=== PATIENT | male | born 1970 ===

== ENCOUNTER 2024-05-13 19:19 | Inpatient (IN) | payer OTHER ==
[2024-05-13] MEDS: LIDOCAINE 1% INJ 10MG/ML (20 ML MDV) SQ ONE (19:58)
[2024-05-13] MEDS: fentaNYL (PF) 50 MCG/ML 2 ML AMP IVP ONE (19:58)
[2024-05-13] MEDS: MIDAZOLAM 2 MG/2 ML VIAL IVP ONE (19:58)
[2024-05-13] MEDS: IV FLUID CONTINUATION 1,000 ML IV ONE (20:00)
[2024-05-13] MEDS: PRASUGREL 10 MG TAB PO ONE (20:12)
[2024-05-13] MEDS: HEPARIN SODIUM 1,000 UN/ML (10ML VL) IV ONE (20:12)
[2024-05-13] MEDS: FUROSEMIDE 10 MG/ML 4 ML VIAL IV ONE (20:12)
--- NOTE | 2024-05-13 20:17 | P.CRDCN ---
History of Present Illness Consult date: 05/13/24 History of present illness: HISTORY OF PRESENTING ILLNESS: Patient is a 53-year-old male with past medical history of hypertension, dyslipidemia with no prior history of coronary artery disease stroke or diabetes. He presented to [facility] because of substernal chest pressure that started this morning. This was associated with a sense of impending doom, palpitations and diaphoresis. She does have a history of smoking 1 to 2 packs cigarettes per day and use of marijuana every day. Denies any heavy alcohol use drug use On admission to the ER he was noticed to have significant ST elevations in anterior leads for which STEMI was activated and patient was transferred to [facility]. Upon arrival to [facility] patient was immediately wheeled to the cardiac Lime Kiln Tender without any delays. Patient was emergently taken for the cardiac cath procedure after obtaining the verbal consent. Patient denies any history of stroke, TIA, cancers, bleeding problems. REVIEW OF SYSTEMS: 14 point review of system is negative except what is mentioned above in HPI. PHYSICAL EXAMINATION: Neck: Brisk carotid upstroke, no jugular venous distention. Lungs: Clear to auscultation. Heart: Regular rate and rhythm, S1-S2, , no murmur or rub. Abdomen: Soft nontender, positive bowel sounds. Extremities: No edema, intact distal pulses. Neuro: Alert, oritented, no focal deficits. Detailed neuro exam was not performed. ASSESSMENT: # Anterior STEMI # Essential hypertension # Tobacco smoker # Marijuana smoker PLAN: Emergent cardiac cath Further recommendations to follow Rafat Clemens MD, FACC, RPVI Thank you for allowing [facility] to participate in this patient's care. Feel free to reach out in case of any followup questions. Medications and Allergies Allergies Allergy/AdvReac Type Severity Reaction Status Date / Time No Known Allergies Allergy Unverified 05/13/24 20:04
--- NOTE | 2024-05-13 20:22 | P.CARDCATH ---
Date of Procedure: 05/13/24 Description of Procedure: DIAGNOSTIC CORONARY ANGIOGRAPHY and LEFT HEART CATH REPORT PROCEDURES PERFORMED: Left heart catheterization Selective coronary angiography Moderate conscious sedation 15 mins Right radial access INDICATION: STEMI BRIEF HPI: 53-year-old with history of smoking, marijuana use presented to the [facility] because of anterior STEMI. He was taken to the [facility] because of significant ST elevation and substernal chest pressure. CONSENT: I have explained the procedural steps of above-mentioned procedures in layman's terms to the patient. I discussed the risks (including but not limited to stroke, emergent vascular or cardiac surgery or ), benefits and alternative therapies for the above-mentioned procedure. I discussed the risks of sedation/analgesia and blood product administration (if indicated). The patient has indicated understanding and acceptance of these risks. Conscious Sedation: Patient's ECG, heart rate, blood pressure, pulse oximetry were monitored throughout the duration of procedure under my direct supervision. 1 mg Versed and 25 mcg Fentanyl were used for induction of moderate conscious sedation. Total duration of moderate concious sedation 15 minutes. PROCEDURAL DETAILS: Patient was prepped and draped in sterile fashion. 1% lidocaine was infiltrated over the right radial artery. Right radial access was obtained via modified seldinger technique.. Medications: 5mg of verapamil was administed in the radial sheet. 5000 units of heparin and 325 mg of aspirin was given in the EMS Wires and Catheter used: J wire was advanced under fluroscopy to get to aortic root. 5 mosotho JR 4 diagnostic catheter was utilized obtain left ventricular pressure and pressure gradint across aortic valve. 5 mosotho JR 4 diagnostic catheter was used to selectively engage the right coronary ostium. 5 mosotho JL 3.5 diagnostic catheter was utilized to selectively engage the left coronary ostium. Angiographic images were reviewed in detail. Catheter and wire were removed. Radial sheet was flushed. The right radial sheath was removed and a TR band was placed. Patent hemostasis was achieved. The patient tolerated the procedure well. Patient was transported back to the post catheterization holding area in stable condition. TECHNICAL DETAILS Total radiation: 100 mGy Total fluro time: 3.4 minutes Total contrast used: Isovue 50 mL Complications: [none] Estimated Blood loss: less than 15 ml HEMODYNAMICS: Aortic Pressure: 139/90 mmHg. LV pressure: 140/10 mmHg. LVEDP 28 mmHg. There was no significant gradient across the aortic valve. SELECTIVE CORONARY ARTERIOGRAPHY: LEFT MAIN: The left main is short and large caliber vessel. It bifurcates into the LAD and circumflex. Left main appears angiographically normal. LEFT ANTERIOR DESCENDING CORONARY ARTERY: LAD is a large-caliber vessel. Proximal LAD is patent. Distal part of proximal LAD has 20% disease. Just after giving a small septal branch LAD is 100% thrombotic occluded in mid segment. HARPREET 0 flow LEFT CIRCUMFLEX CORONARY ARTERY: It is nondominant vessel. Left circumflex is a moderate caliber vessel. Proximal LCx is patent. Proximal LCx is less to a "high" OM1 branch which is a medium caliber vessel. Proximal OM1 has 20 to 30% disease. Distal OM1 is patent. Mid LCx is patent. Distally mid LCx continues to become OM 2 which is medium caliber angiographically patent RIGHT CORONARY ARTERY: Dominant vessel. The right coronary artery is a large caliber vessel. Proximal and mid RCA is tortuous. Proximal RCA has 30% irregular plaque. Mid RCA has 80% stenosis with poststenotic ectasia. Distal RCA is patent with mild luminal irregularities. Gives rise to medium caliber PDA and PL branch which appears patent. IMPRESSION: 100% mid LAD thrombotic occlusion, HARPREET 0 flow 80% mid RCA, 30% proximal RCA disease Mid RCA ectasia 30% OM1 disease Elevated EDP Ischemic cardiomyopathy PLAN: Emergent LAD PCI Further recommendations to follow Performing Physician Rafat Clemens MD, FACC, RPVI Thank you for allowing [facility] to participate in this patient's care. Feel free to reach out in case of any followup questions.
[2024-05-13] MEDS: NITROGLYCERIN 1000MCG/10ML SYRINGE INTRACORON ONE (20:36)
[2024-05-13] MEDS: niCARdipine Syringe (1,000 mcg/10 mL) INTRACORON ONE (20:37)
[2024-05-13] MEDS: IOPAMIDOL-250 100ML BTL INTRAARTER ONE (20:39)
[2024-05-13] MEDS: IOPAMIDOL-370 100ML BTL INJ ONE (20:40)
[2024-05-13] MEDS ORDERED: NITROGLYCERIN SL TABS 0.4 MG TAB SUBLINGUAL PRN (20:45)
[2024-05-13] MEDS ORDERED: MAG HYDROX/AL HYDROX/SIMETH 30 ML CUP PO PRN (20:45)
[2024-05-13] MEDS ORDERED: ATROPINE SULFATE 0.1 MG/ML 10ML SYRINGE IV PRN (20:45)
[2024-05-13] MEDS ORDERED: ZOLPIDEM 5 MG TAB PO PRN (20:45)
[2024-05-13] MEDS ORDERED: RX INFO: IV CONTRAST WAS GIVEN 1 EACH MISC MISCELLANE PRN (20:45)
--- NOTE | 2024-05-13 20:48 | P.PCN ---
Date of Procedure: 05/13/24 Operative Findings: PERCUTANEOUS CORONARY INTERVENTION Performing physician Marlon Mchugh M.D. Procedure Performed: 1. Successful stenting of the mid LAD using 5.0 x 23 mm Xience drug-eluting stent with an excellent angiographic results. 2. Adjunctive use of IVUS Indication: Acute anterior ST elevation myocardial infarction in this 53-year-old gentleman with history of smoking as well as hypertension Approach: Right radial artery Complications: None Level of Sedation: Moderate with a sedation length of 27 minutes Procedure Discussion: Please refer to diagnostic heart catheterization was performed earlier today by Dr. Clemens. Anticoagulation was initiated using heparin. Continuous ACT mon itoring was performed. I did engage the left main using JL 4 guiding catheter. I did wire the LAD and cross acute total occlusion using a run-through wire which was positioned/stationed in the distal LAD. I did restore the LAD flow using 2.5 mm x 12 mm balloon and subsequently IVUS was performed and showed a diameter around 5 mm noncalcified vessel. I placed 5.0 x 23 mm stent which was initially postdilated using 5.5 mm noncompliant balloon with IVUS showing that the stent was not well opposed and subsequently 6 mm noncompliant balloon. With subsequent IVUS and angiogram showing excellent angiographic results and the procedure was completed with no complication. Postprocedure Management: 1. Dual antiplatelet therapy using aspirin and Effient for at least 12-month 2. Aggressive cholesterol control and risk factors modification 3. Smoking cessation
[2024-05-13] MEDS ORDERED: ATORVASTATIN 40 MG TAB PO SCH (21:00)
[2024-05-13] MEDS ORDERED: SACUBITRIL/VALSARTAN 24 MG-26 MG TABLET PO SCH (21:00)
[2024-05-13 21:06] LABS: Glucose,Whole Blood 152 mg/dL (70-110)
[2024-05-13] MEDS: SODIUM CHLORIDE 0.9% 1,000 ML in EMPTY BAG 1 BAG IV SCH (22:16)
[2024-05-13] MEDS: ATORVASTATIN 80 MG TAB PO SCH (22:17)
[2024-05-13 22:30] LABS: NT-Pro-B-Type Natriuretic Pept 125 pg/mL
[2024-05-14] MEDS: carvediloL 3.125 MG TAB PO SCH (06:44)
[2024-05-14] MEDS: FUROSEMIDE 10 MG/ML 2 ML VIAL IV ONE (06:57)
[2024-05-14 07:28] LABS: Basophils % (A) 0 %; Eosinophils % (A) 0 %; HCT 44.3 % (39.0-53.0); HGB 14.2 gm/dL (13.0-17.5); Lymphocytes # (A) 1.9 k/uL (1.0-4.8); Lymphocytes % (A) 17 %; MCH 30.2 pg (25.0-35.0); MCHC 32.1 g/dL (31.0-37.0); MCV 94.1 fL (80.0-100.0); Mean Platelet Volume 6.4; Monocytes # (A) 0.7 k/uL (0-1.0); Monocytes % (A) 6 %; Neutrophils # (A) 8.4 k/uL (1.3-7.7); Neutrophils % (A) 76 %; Platelet Count 240 k/uL (150-450); RBC 4.71 m/uL (4.30-5.90); RDW 12.7 % (11.5-15.5); WBC 11.1 k/uL (3.8-10.6)
[2024-05-14 08:09] LABS: ALT 114 U/L (4-49); African American GFR (CKD) >90 (>60 ml/min/1.73 sqM); Albumin 4.2 g/dL (3.5-5.0); Alkaline Phosphatase 72 U/L (38-126); Anion Gap 10 mmol/L; Blood Urea Nitrogen 15 mg/dL (9-20); Calcium 8.8 mg/dL (8.4-10.2); Carbon Dioxide 24 mmol/L (22-30); Chloride 103 mmol/L (98-107); Glucose 112 mg/dL (74-99); Magnesium 1.9 mg/dL (1.6-2.3); Non-African American GFR(CKD) >90 (>60 ml/min/1.73 sqM); Potassium 3.5 mmol/L (3.5-5.1); Sodium 137 mmol/L (137-145); Total Bilirubin 1.2 mg/dL (0.2-1.3); Total Protein 6.7 g/dL (6.3-8.2)
[2024-05-14 08:22] LABS: AST 766 U/L (17-59)
[2024-05-14] MEDS: ASPIRIN 81 MG PO SCH (08:39)
[2024-05-14] MEDS: PRASUGREL 10 MG TAB PO SCH (08:40)
[2024-05-14] MEDS: SACUBITRIL/VALSARTAN 24 MG-26 MG TABLET PO SCH ×2 (08:41→23:41)
[2024-05-14] MEDS: DAPAGLIFLOZIN PROPANEDIOL 10 MG TABLET PO SCH (08:41)
[2024-05-14] MEDS ORDERED: DAPAGLIFLOZIN PROPANEDIOL 10 MG TABLET PO SCH (09:00)
[2024-05-14] MEDS ORDERED: SPIRONOLACTONE 25 MG TAB PO SCH (09:00)
[2024-05-14] MEDS ORDERED: EZETIMIBE 10 MG TAB PO SCH (09:00)
[2024-05-14] MEDS ORDERED: TORSEMIDE 20 MG TAB PO SCH (09:00)
[2024-05-14 10:15] LABS: Chol/HDL Ratio 3.81 Ratio; LDL Cholesterol,Calculated 108.6 mg/dL (0.0-131.0); VLDL Calculation 18.24 mg/dL (5.00-40.00)
[2024-05-14] MEDS ORDERED: MELATONIN 5 MG TABLET PO PRN (10:46)
[2024-05-14] MEDS: ALPRAZolam 0.5 MG TAB PO PRN (10:57)
[2024-05-14] MEDS: ESCITALOPRAM 10 MG TAB PO SCH (12:02)
[2024-05-14] MEDS: SACUBITRIL/VALSARTAN 24 MG-26 MG TABLET PO ONE (15:02)
--- NOTE | 2024-05-14 18:57 | P.PN ---
Subjective Progress Note Date: 05/14/24 HISTORY OF PRESENTING ILLNESS: Patient is a 53-year-old male with past medical history of hypertension, dy slipidemia with no prior history of coronary artery disease stroke or diabetes. He presented to [facility] because of substernal chest pressure that started this morning. This was associated with a sense of impending doom, palpitations and diaphoresis. She does have a history of smoking 1 to 2 packs cigarettes per day and use of marijuana every day. Denies any heavy alcohol use drug use On admission to the ER he was noticed to have significant ST elevations in anterior leads for which STEMI was activated and patient was transferred to [facility]. Upon arrival to [facility] patient was immediately wheeled to the cardiac [employer] Power Plant Superintendent without any delays. Patient was emergently taken for the cardiac cath procedure after obtaining the verbal consent. Patient denies any history of stroke, TIA, cancers, bleeding problems. REVIEW OF SYSTEMS: 14 point review of system is negative except what is mentioned above in HPI. PHYSICAL EXAMINATION: Neck: Brisk carotid upstroke, no jugular venous distention. Lungs: Clear to auscultation. Heart: Regular rate and rhythm, S1-S2, , no murmur or rub. Abdomen: Soft nontender, positive bowel sounds. Extremities: No edema, intact distal pulses. Neuro: Alert, oritented, no focal deficits. Detailed neuro exam was not performed. ASSESSMENT: # Anterior STEMI # Essential hypertension # Tobacco smoker # Marijuana smoker PLAN: Obtain echocardiogram Aspirin, Effient, Lipitor 80 mg Increase Coreg to 6.25 mg twice daily, Entresto to 49- 51 mg twice daily Farxiga 10 mg daily, give 1 dose of Lasix 20 mg IV for elevated LVEDP. Currently he appears euvolemic Start Lexapro 10 mg for anxiety Smoking cessation Marijuana cessation Cardiac rehab Anticipate discharge in next 24 to 48 hours Objective - Vital Signs Vital signs: Vital Signs Temp 98.4 F 05/14/24 18:02 Pulse 68 05/14/24 18:02 Resp 12 05/14/24 18:02 BP 153/95 05/14/24 18:02 Pulse Ox 97 05/14/24 18:02 FiO2 Intake & Output 05/13/24 05/14/24 05/14/24 17:59 06:59 18:59 Intake Total 120 Output Total 950 Balance -830 Weight Intake: IV Intake, IV Titration 0 Amount Sodium Chloride 0.9% 1, 0 000 ml In Empty Bag 1 bag @ 75 mls/hr IV .[id number] [facility] Rx#:[id number] Oral 120 Output: Urine 950 Other: Voiding Method - Labs CBC & Chem 7: 05/14/24 06:55 05/14/24 06:55 Labs: Abnormal Lab Results - Last 24 Hours (Table) 05/13/24 05/14/24 05/14/24 Range/Units 21:04 06:55 06:55 WBC 11.1 H (3.8-10.6) k/uL Neutrophils # 8.4 H (1.3-7.7) k/uL Glucose 112 H (74-99) mg/dL POC Glucose (mg/dL) 152 H (70-110) mg/dL AST 766 H (17-59) U/L ALT 114 H (4-49) U/L
[2024-05-14 19:41] LABS: African American GFR (CKD) >90 (>60 ml/min/1.73 sqM); Non-African American GFR(CKD) >90 (>60 ml/min/1.73 sqM)
[2024-05-14] MEDS: carvediloL 3.125 MG TAB PO STA (20:03)
[2024-05-15] MEDS: carvediloL 6.25 MG TAB PO SCH (06:32)
--- NOTE | 2024-05-15 13:55 | P.PN ---
Subjective Progress Note Date: 05/15/24 HISTORY OF PRESENTING ILLNESS: Patient is a 53-year-old male with past medical history of hypertension, dy slipidemia with no prior history of coronary artery disease stroke or diabetes. He presented to [facility] because of substernal chest pressure that started this morning. This was associated with a sense of impending doom, palpitations and diaphoresis. He does have a history of smoking 1 to 2 packs cigarettes per day and use of marijuana every day. Denies any heavy alcohol use drug use On admission to the ER he was noticed to have significant ST elevations in anterior leads for which STEMI was activated and patient was transferred to [facility]. Upon arrival to [facility] patient was immediately wheeled to the cardiac Provider Enrollment Specialist without any delays. Patient was emergently taken for the cardiac cath procedure after obtaining the verbal consent. Patient denies any history of stroke, TIA, cancers, bleeding problems. 05/10 Patient seen and examined. He states he is feeling a little bit better. Echocardiogram is pending. Blood pressure 128/90, heart rate 83, pulse ox 96% on room air. No repeat blood work today. Patient will be scheduled tomorrow for PCI of the RCA with Dr. Mchugh. PHYSICAL EXAMINATION: Neck: Brisk carotid upstroke, no jugular venous distention. Lungs: Clear to auscultation. Heart: Regular rate and rhythm, S1-S2, , no murmur or rub. Abdomen: Soft nontender, positive bowel sounds. Extremities: No edema, intact distal pulses. Neuro: Alert, oritented, no focal deficits. Detailed neuro exam was not performed. ASSESSMENT: # Anterior STEMI # Essential hypertension # Tobacco smoker # Marijuana smoker PLAN: Obtain echocardiogram Continue patient on aspirin, Effient, Lipitor 80 mg Continue Coreg 6.25 mg twice daily, Entresto to 49- 51 mg twice daily Farxiga 10 mg daily. Currently he appears euvolemic Smoking cessation Marijuana cessation Cardiac rehab Schedule patient for PCI of the RCA tomorrow with Dr. Mchugh N.p.o. after midnight Will send prescriptions to [facility] pharmacy downstairs to check coverage. Nurse practitioner note has been reviewed, I agree with documented findings and plan of care. Patient was seen and examined. Objective - Vital Signs Vital signs: Vital Signs Temp 98.0 F 05/15/24 08:28 Pulse 83 05/15/24 08:31 Resp 16 05/15/24 08:31 BP 128/90 05/15/24 08:28 Pulse Ox 96 05/15/24 08:28 FiO2 Intake & Output 05/14/24 05/15/24 05/15/24 18:59 06:59 18:59 Intake Total 120 560 Output Total 950 Balance -830 560 Weight 69 kg Intake: IV 20 Invasive Line 1 10 Invasive Line 2 10 Intake, IV Titration 0 Amount Sodium Chloride 0.9% 1, 0 000 ml In Empty Bag 1 bag @ 75 mls/hr IV .[id number] [facility] Rx#:[id number] Oral 120 540 Output: Urine 950 Other: Voiding Method Urinal # Voids 1 1 - Labs CBC & Chem 7: 05/14/24 06:55 05/14/24 18:42
[2024-05-15] MEDS ORDERED: NITROGLYCERIN SL TABS 0.4 MG TAB SUBLINGUAL PRN (13:58)
--- NOTE | 2024-05-15 16:31 | CA ---
Transthoracic Echo Report Name: Demond Gipson Age: 53 Gender: M : 1970 Exam Date: 05/15/2024 08:56 Exam Location: [place] [facility] Ht (in): 64 Wt (lb): 152 Ordering Physician: Rafat Clemens MD ([email or web address]) Attending/Referring Phys: Apparel Manufacture Instructor Kailyn Grijalva RDCS Procedure CPT: Indications: stemi Cardiac Hx: Stent to LAD Technical Quality: Technically difficult study Contrast 1: Definity Total Dose (mL): 3 Contrast 2: Total Dose (mL): MEASUREMENTS (Male / Female) Normal Values 2D ECHO LV Diastolic Diameter PLAX 4.4 cm 4.2 - 5.9 / 3.9 - 5.3 cm LV Systolic Diameter PLAX 3.2 cm IVS Diastolic Thickness 1.4 cm 0.6 - 1.0 / 0.6 - 0.9 cm LVPW Diastolic Thickness 1.0 cm 0.6 - 1.0 / 0.6 - 0.9 cm LV Relative Wall Thickness 0.5 LVOT Diameter 2.3 cm LV Diastolic Volume MOD BP 149.4 cm??? 67 - 155 / 56 - 104 cm??? LV Systolic Volume MOD BP 100.2 cm??? 22 - 58 / 19 - 49 cm??? LV Ejection Fraction MOD BP 32.9 % >= 55 % LV Cardiac Index MOD BP 1879.0 cm???/min???m??? LV Diastolic Volume MOD 4C 127.9 cm??? LV Systolic Volume MOD 4C 90.3 cm??? LV Ejection Fraction MOD 4C 29.5 % LV Cardiac Index MOD 4C 1440.4 cm???/min???m??? LV Diastolic Length 4C 8.0 cm LV Systolic Length 4C 7.9 cm LV Diastolic Volume MOD 2C 158.7 cm??? LV Systolic Volume MOD 2C 107.5 cm??? LV Ejection Fraction MOD 2C 32.2 % LV Cardiac Index MOD 2C 1955.2 cm???/min???m??? LV Diastolic Length 2C 8.8 cm LV Systolic Length 2C 8.3 cm LA Volume 72.7 cm??? 18 - 58 / 22 - 52 cm??? LA Volume Index 40.9 cm???/m??? 16 - 28 cm???/m??? DOPPLER AV Peak Velocity 103.3 cm/s AV Peak Gradient 4.3 mmHg AV Mean Velocity 76.1 cm/s AV Mean Gradient 2.5 mmHg AV Velocity Time Integral 19.5 cm LVOT Peak Velocity 79.1 cm/s LVOT Peak Gradient 2.5 mmHg LVOT Velocity Time Integral 14.5 cm LVOT Stroke Volume 61.5 cm??? LVOT Stroke Volume Index 35.3 ml/m??? LVOT Cardiac Index 2349.9 cm???/min???m??? AV Area Cont Eq vti 3.1 cm??? AV Area Cont Eq pk 3.2 cm??? MV Area PHT 8.0 cm??? Mitral E Point Velocity 51.0 cm/s Mitral A Point Velocity 52.7 cm/s Mitral E to A Ratio 1.0 MV Deceleration Time 95.2 ms TR Peak Velocity 234.9 cm/s TR Peak Gradient 22.1 mmHg Right Atrial Pressure 5.0 mmHg Pulmonary Artery Systolic Pressu 27.1 mmHg Right Ventricular Systolic Press 27.1 mmHg PV Peak Velocity 80.1 cm/s PV Peak Gradient 2.6 mmHg FINDINGS Left Ventricle Left ventricular ejection fraction is estimated at 25- 30 %. Mildly increased septal wall thickness. Severely increased left ventricular systolic volume. Moderately decreased left ventricular ejection fraction. Akinetic apex. Right Ventricle Normal right ventricular size and function. Right ventricular systolic pressure within normal limits. Right Atrium Normal right atrial size. Left Atrium Moderately increased left atrial volume. Mitral Valve Structurally normal mitral valve. No evidence for mitral valve prolapse. No mitral stenosis. Mild mitral regurgitation. Aortic Valve Trileaflet aortic valve. No aortic valve stenosis or regurgitation. Tricuspid Valve Structurally normal tricuspid valve. No tricuspid stenosis. Mild tricuspid regurgitation. Pulmonic Valve Structurally normal pulmonic valve. No pulmonic stenosis. No pulmonic regurgitation. Pericardium No pericardial effusion. Aorta Normal size aortic root and proximal ascending aorta. CONCLUSIONS Left ventricular ejection fraction 25-30% RVSP 27 Mild mitral regurgitation Mild tricuspid regurgitation Previewed by: Dr. Abel Mitchell DO (Electronically Signed) Final Date: 15 May 2024 16:30
[2024-05-16] MEDS: ATORVASTATIN 80 MG TAB PO ONE (06:27)
[2024-05-16] MEDS: ASPIRIN 325 MG TAB PO ONE (06:27)
[2024-05-16] MEDS: ALPRAZolam 0.25 MG TAB PO PRN (10:15)
--- NOTE | 2024-05-16 13:31 | P.PN ---
Subjective Progress Note Date: 05/16/24 HISTORY OF PRESENTING ILLNESS: Patient is a 53-year-old male with past medical history of hypertension, dy slipidemia with no prior history of coronary artery disease stroke or diabetes. He presented to [facility] because of substernal chest pressure that started this morning. This was associated with a sense of impending doom, palpitations and diaphoresis. He does have a history of smoking 1 to 2 packs cigarettes per day and use of marijuana every day. Denies any heavy alcohol use drug use On admission to the ER he was noticed to have significant ST elevations in anterior leads for which STEMI was activated and patient was transferred to [facility]. Upon arrival to [facility] patient was immediately wheeled to the cardiac Resident Inspector without any delays. Patient was emergently taken for the cardiac cath procedure after obtaining the verbal consent. Patient denies any history of stroke, TIA, cancers, bleeding problems. 05/15 Patient seen and examined. He states he is feeling a little bit better. Echocardiogram is pending. Blood pressure 128/90, heart rate 83, pulse ox 96% on room air. No repeat blood work today. Patient will be scheduled tomorrow for PCI of the RCA with Dr. Mchugh. 05/16 Patient seen and examined. Patient is scheduled for PCI today with Dr. Mchugh. E chocardiogram reveals EF of 25 to 30%, RVSP 27, mild MR, mild TR. Blood pressure 121/81, heart rate 73, pulse ox 96% on room air. PHYSICAL EXAMINATION: Neck: Brisk carotid upstroke, no jugular venous distention. Lungs: Clear to auscultation. Heart: Regular rate and rhythm, S1-S2, , no murmur or rub. Abdomen: Soft nontender, positive bowel sounds. Extremities: No edema, intact distal pulses. Neuro: Alert, oritented, no focal deficits. Detailed neuro exam was not performed. ASSESSMENT: # Anterior STEMI # Essential hypertension # Tobacco smoker # Marijuana smoker PLAN: Continue patient on aspirin, Effient, Lipitor 80 mg Continue Coreg 6.25 mg twice daily, Entresto to 49- 51 mg twice daily, Farxiga 10 mg daily. Smoking cessation Marijuana cessation Cardiac rehab Schedule patient for PCI of the RCA today with Dr. Mchugh N.p.o. Patient prescriptions have been sent to [facility] pharmacy downstairs to check coverage. Nurse practitioner note has been reviewed, I agree with documented findings and plan of care. Patient was seen and examined. Objective - Vital Signs Vital signs: Vital Signs Temp 98.0 F 05/16/24 04:00 Pulse 73 05/16/24 04:00 Resp 18 05/16/24 04:00 BP 121/81 05/16/24 04:00 Pulse Ox 96 05/16/24 04:00 FiO2 Intake & Output 05/15/24 05/16/24 05/16/24 18:59 06:59 18:59 Intake Total 580 Balance 580 Weight 69 kg 69 kg Intake: IV 40 Invasive Line 1 20 Invasive Line 2 20 Oral 540 Other: Voiding Method Urinal Urinal # Voids 1 1 # Bowel Movements 1 - Labs CBC & Chem 7: 05/14/24 06:55 05/14/24 18:42
[2024-05-16] MEDS: MIDAZOLAM 2 MG/2 ML VIAL IVP ONE (13:37)
[2024-05-16] MEDS: LIDOCAINE 1% INJ 10MG/ML (20 ML MDV) SQ ONE (13:37)
[2024-05-16] MEDS: HEPARIN SODIUM 1,000 UN/ML (10ML VL) IVP ONE (13:40)
[2024-05-16] MEDS: VERAPAMIL SYRINGE (5 MG/10 ML) INTRAARTER ONE (13:40)
[2024-05-16] MEDS: HEPARIN SODIUM,PORCINE (1 ML) 2,500 UNIT in SODIUM CHLORIDE 0.9% 250 ML IRRIGATION PRN (13:41)
[2024-05-16] MEDS: HEPARIN SODIUM,PORCINE 10,000 UNIT in SODIUM CHLORIDE 0.9% 1,000 ML IRRIGATION PRN (13:41)
[2024-05-16] MEDS: SODIUM CHLORIDE 0.9% 1,000 ML IV ONE (13:42)
[2024-05-16] MEDS: NITROGLYCERIN 1000MCG/10ML SYRINGE INTRACORON ONE (13:55)
[2024-05-16] MEDS: IOPAMIDOL-370 200ML BTL INJ ONE (13:58)
[2024-05-16] MEDS ORDERED: RX INFO: IV CONTRAST WAS GIVEN 1 EACH MISC MISCELLANE PRN (14:01)
--- NOTE | 2024-05-16 14:05 | P.PCN ---
Date of Procedure: 05/16/24 Operative Findings: PERCUTANEOUS CORONARY INTERVENTION Performing physician Marlon Mchugh M.D. Procedure Performed: 1. Successful stenting of the mid RCA using 4.5 x 33 mm Xience drug-eluting stent with an excellent angiographic results. 2. Adjunctive use of IVUS and ultrasound-guided access of the right radial artery Indication: Severe CAD documented on heart catheterization in this 53-year-old gentleman who presented few days ago with anterior STEMI and underwent PCI of the LAD and was noted to have severe disease involving the RCA Approach: Right radial art Complications: None Level of Sedation: Moderate with a sedation length of 23 minutes Procedure Discussion: After obtaining informed consent the patient was brought to the cardiac Petroleum Refining Equipment Operator with right radial artery was cannulated using micropuncture technique under ultrasound guidance a micropuncture wire passed easily then I placed a 6 Grenadian 11 cm sheath at the right radial artery gave the patient 2 mg of verapamil intra-arterial and 5000's of heparin intravenous. I did after that engaged the RCA using JR4 guiding catheter with I did right coronary angiogram which showed critical disease involving the mid RCA. I did wire the RCA using a run-through wire. IVUS was performed and showed a diameter around 4.5 mm with predilatation was performed using 3.5 mm balloon before I deployed 4.5 x 33 mm which was postdilated using 5 mm NC balloon. Final angiogram and IVUS showed good angiographic results and the procedure was completed with no complication Postprocedure Management: 1. Dual antiplatelet therapy using aspirin and Effient for at least 12-month 2. Aggressive cholesterol control 3. Risk factors modification
[2024-05-16] MEDS: SODIUM CHLORIDE 0.9% 1,000 ML in EMPTY BAG 1 BAG IV SCH (14:30)
[2024-05-17 06:24] VITALS: RESP 16; TEMP 98
[2024-05-17 06:58] LABS: Basophils % (A) 1 %; Eosinophils # (A) 0.1 k/uL (0-0.7); Eosinophils % (A) 1 %; HCT 47.8 % (39.0-53.0); HGB 15.2 gm/dL (13.0-17.5); Lymphocytes # (A) 1.7 k/uL (1.0-4.8); Lymphocytes % (A) 19 %; MCH 29.9 pg (25.0-35.0); MCHC 31.8 g/dL (31.0-37.0); MCV 94.1 fL (80.0-100.0); Mean Platelet Volume 6.4; Monocytes # (A) 0.9 k/uL (0-1.0); Monocytes % (A) 10 %; Neutrophils # (A) 5.7 k/uL (1.3-7.7); Neutrophils % (A) 67 %; Platelet Count 239 k/uL (150-450); RBC 5.08 m/uL (4.30-5.90); RDW 12.5 % (11.5-15.5); WBC 8.6 k/uL (3.8-10.6)
[2024-05-17 07:15] LABS: African American GFR (CKD) >90 (>60 ml/min/1.73 sqM); Anion Gap 8 mmol/L; Blood Urea Nitrogen 26 mg/dL (9-20); Calcium 9.1 mg/dL (8.4-10.2); Carbon Dioxide 22 mmol/L (22-30); Chloride 108 mmol/L (98-107); Glucose 107 mg/dL (74-99); Non-African American GFR(CKD) >90 (>60 ml/min/1.73 sqM); Potassium 3.9 mmol/L (3.5-5.1); Sodium 138 mmol/L (137-145)
--- NOTE | 2024-05-17 09:50 | P.DS ---
Providers Date of admission: 05/13/24 19:22 Expected date of discharge: 05/17/24 Attending physician: Rafat Clemens MD Consults: 05/13/24 20:45 Consult Physician Routine Consulting Provider: Piedad Hightower Consult Reason/Comments: Post Interventional patient Do you want consulting provider notified?: Already Contacted 05/16/24 14:01 Consult Physician Routine Consulting Provider: Piedad Hightower Consult Reason/Comments: Post Interventional Patient Do you want consulting provider notified?: Already Contacted Primary care physician: Stated None Hospital Course: HISTORY OF PRESENTING ILLNESS: Patient is a 53-year-old male with past medical history of hypertension, dyslipidemia with no prior history of coronary artery disease stroke or diabetes. He presented to [facility] because of substernal chest pressure that started this morning. This was associated with a sense of impending doom, palpitations and diaphoresis. He does have a history of smoking 1 to 2 packs cigarettes per day and use of marijuana every day. Denies any heavy alcohol use drug use On admission to the ER he was noticed to have significant ST elevations in anterior leads for which STEMI was activated and patient was transferred to [facility]. Upon arrival to [facility] patient was immediately wheeled to the cardiac Compound Worker without any delays. Patient was emergently taken for the cardiac cath procedure after obtaining the verbal consent. Patient denies any history of stroke, TIA, cancers, bleeding problems. 05/15 Patient seen and examined. He states he is feeling a little bit better. Echocardiogram is pending. Blood pressure 128/90, heart rate 83, pulse ox 96% on room air. No repeat blood work today. Patient will be scheduled tomorrow for PCI of the RCA with Dr. Mchugh. 05/16 Patient seen and examined. Patient is scheduled for PCI today with Dr. Mchugh. Echocardiogram reveals EF of 25 to 30%, RVSP 27, mild MR, mild TR. Blood pressure 121/81, heart rate 73, pulse ox 96% on room air. 05/17 Yesterday, patient underwent PCI with Dr. Mchugh with BLAS to the mid RCA. Patient denies any chest pain no shortness of breath. No lightheadedness or dizziness. EKG reviewed and he has persistent elevation of ST from recent anterior IN. Wrist shows no hematoma, area is soft no bleeding. Blood pressure 115/82, heart rate 67, pulse ox 96% on room air. Repeat blood work reveals CBC unremarkable. BUN 26 creatinine 0.84. PHYSICAL EXAMINATION: Neck: Brisk carotid upstroke, no jugular venous distention. Lungs: Clear to auscultation. Heart: Regular rate and rhythm, S1-S2, , no murmur or rub. Abdomen: Soft nontender, positive bowel sounds. Extremities: No edema, intact distal pulses. Neuro: Alert, oritented, no focal deficits. Detailed neuro exam was not performed. ASSESSMENT: # Anterior STEMI # Ischemic cardiomyopathy with EF of 25 to 30% # Essential hypertension # Tobacco smoker # Marijuana smoker Patient is discharged home today in stable condition. LifeVest will be ordered prior to discharge. Nurse practitioner note has been reviewed, I agree with documented findings and plan of care. Patient was seen and examined. Plan - Discharge Summary New Discharge Prescriptions: New Aspirin 81 mg PO DAILY tab carvediloL [Coreg] 6.25 mg PO BID-W/MEALS #180 tab Atorvastatin [Lipitor] 80 mg PO HS #90 tab Prasugrel [Effient] 10 mg PO DAILY #90 tab Sacubitril/Valsartan [Entresto 49 mg-51 mg Tablet] 1 each PO BID #180 tablet Dapagliflozin Propanediol [Farxiga] 10 mg PO DAILY #90 tab Escitalopram [Lexapro] 10 mg PO DAILY #90 tab Nitroglycerin Sl Tabs [Nitrostat] 0.4 mg SUBLINGUAL Q5M PRN #25 tab PRN Reason: Chest Pain Discharge Medication List Aspirin 81 mg PO DAILY tab 05/15/24 [Rx] Atorvastatin [Lipitor] 80 mg PO HS #90 tab 05/15/24 [Rx] Dapagliflozin Propanediol [Farxiga] 10 mg PO DAILY #90 tab 05/15/24 [Rx] Escitalopram [Lexapro] 10 mg PO DAILY #90 tab 05/15/24 [Rx] Nitroglycerin Sl Tabs [Nitrostat] 0.4 mg SUBLINGUAL Q5M PRN #25 tab 05/15/24 [Rx] Prasugrel [Effient] 10 mg PO DAILY #90 tab 05/15/24 [Rx] Sacubitril/Valsartan [Entresto 49 mg-51 mg Tablet] 1 each PO BID #180 tablet 05/15/24 [Rx] carvediloL [Coreg] 6.25 mg PO BID-W/MEALS #180 tab 05/15/24 [Rx] Follow up Appointment(s)/Referral(s): Rafat Clemens MD [Medical Doctor] - 1 Week Lilian Rowe MD [STAFF PHYSICIAN] - 1 Week Plan of Treatment: Follow-up with Dr. Rowe for PFT and COPD management
[2024-05-17 11:54] VITALS: BMI 26.2
[2024-05-17 15:39] VITALS: BP 125/71; PULSE 67
== END 2024-05-17 15:41 | disposition home or self-care (01) | DRG 174 ==
LOC: 2SICU 19:22 → 3SCARD 05-14 17:39
PROVIDERS: ADMIT Student in an Organized Health Care Education/Training Program; ATTEND Student in an Organized Health Care Education/Training Program
PROC: B2111ZZ Fluoroscopy of Multiple Coronary Arteries using Low Osmolar Contrast (ICD-10-PCS; 2024-05-13 19:33)
PROC: 027034Z Dilation of Coronary Artery, One Artery with Drug-eluting Intraluminal Device, Percutaneous Approach (ICD-10-PCS; 2024-05-13 19:33)
PROC: 4A023N7 Measurement of Cardiac Sampling and Pressure, Left Heart, Percutaneous Approach (ICD-10-PCS; 2024-05-13 19:33)
PROC: B240ZZ3 Ultrasonography of Single Coronary Artery, Intravascular (ICD-10-PCS; 2024-05-13 19:33)
PROC: B240ZZ3 Ultrasonography of Single Coronary Artery, Intravascular (ICD-10-PCS; principal; 2024-05-16 13:30)
PROC: 027034Z Dilation of Coronary Artery, One Artery with Drug-eluting Intraluminal Device, Percutaneous Approach (ICD-10-PCS; principal; 2024-05-16 13:30)
DX: I21.09 ST elevation (STEMI) myocardial infarction involving other coronary artery of anterior wall (principal); I25.10 Atherosclerotic heart disease of native coronary artery without angina pectoris; F17.210 Nicotine dependence, cigarettes, uncomplicated; E78.5 Hyperlipidemia, unspecified; I10 Essential (primary) hypertension; I25.5 Ischemic cardiomyopathy; Z28.21 Immunization not carried out because of patient refusal; Z79.82 Long term (current) use of aspirin; Z79.899 Other long term (current) drug therapy; Z79.01 Long term (current) use of anticoagulants; Z79.02 Long term (current) use of antithrombotics/antiplatelets
CPT/HCPCS: 80048; 80053; 80061; 82565; 83036; 83735; 83880; 84443; 85025; 92978; 93306; 93458